=== PATIENT | male | born 1990 | race Caucasian/White ===

== ENCOUNTER 2018-01-06 19:24 | Inpatient (IN) | payer MEDICAID, OTHER ==
--- NOTE | 2018-01-06 19:35 | C.PDOC ---
History Of Present Illness 27 year old male is sent to the ED from [facility] where he was hospitalized for severe episodes of psychotic episodes s/p smoking marijuana with/without extra chemicals in it. Patient states his symptoms have been going on for a week. Patient reports being paranoid, anxious and being unable to sleep. Patient denies other physical complaints, SI/HI, hallucinations, fever, CP, SOB. Time Seen by Provider: 01/06/18 19:31 Chief Complaint (Nursing): Psychiatric Evaluation History Per: Patient, Other History/Exam Limitations: no limitations Onset/Duration Of Symptoms: Days Current Symptoms Are (Timing): Still Present Suicide/Self Injury Attempted (Context): None Modifying Factor(s): Marijuana Associated Symptoms: Anxiety, Paranoia. denies: Depression, Suicidal Thoughts, Suicidal Plan Recent travel outside of the [place]: No Additional History Per: Patient Past Medical History Reviewed: Historical Data, Nursing Documentation, Vital Signs Vital Signs: Last Vital Signs Temp 98 F 01/06/18 19:31 Pulse 68 01/06/18 19:31 Resp 20 01/06/18 19:31 BP 135/68 01/06/18 19:31 Pulse Ox 98 01/06/18 19:31 - Medical History PMH: No Chronic Diseases Surgical History: No Surg Hx Family History: States: Unknown Family Hx - Social History Hx Tobacco Use: No Hx Alcohol Use: No Hx Substance Use: Yes Review Of Systems Constitutional: Negative for: Fever, Chills Cardiovascular: Negative for: Chest Pain Respiratory: Negative for: Cough, Shortness of Breath Gastrointestinal: Negative for: Nausea, Vomiting, Abdominal Pain Skin: Negative for: Rash Neurological: Negative for: Weakness, Numbness Psych: Positive for: Anxiety, Psychosis. Negative for: Depression, Suicidal ideation Physical Exam - Physical Exam Appears: Non-toxic, No Acute Distress Skin: Normal Color, Warm, Dry Head: Atraumatic, Normacephalic Eye(s): bilateral: Normal Inspection Nose: No Discharge Oral Mucosa: Moist Neck: Normal ROM, Supple Chest: Symmetrical Cardiovascular: Rhythm Regular, No Murmur Respiratory: Normal Breath Sounds, No Rales, No Rhonchi, No Wheezing Gastrointestinal/Abdominal: Soft, No Tenderness, No Guarding, No Rebound Extremity: Normal ROM, No Tenderness, No Swelling Neurological/Psych: Oriented x3 ED Course And Treatment O2 Sat by Pulse Oximetry: 98 (On RA) Pulse Ox Interpretation: Normal Medical Decision Making Medical Decision Making: Patient will be admitted to the Hospital. Disposition Counseled Patient/Family Regarding: Diagnosis, Need For Followup - Disposition Disposition: HOME/ ROUTINE Disposition Time: 19:34 Condition: SERIOUS Forms: [facility] ([place]) - Clinical Impression Clinical Impression: Acute hyperactive cannabis intoxication delirium - Scribe Statement The provider has reviewed the documentation as recorded by the Scribe Dl Freeman All medical record entries made by the Scribe were at my direction and personally dictated by me. I have reviewed the chart and agree that the record accurately reflects my personal performance of the history, physical exam, medical decision making, and the department course for this patient. I have also personally directed, reviewed, and agree with the discharge instructions and disposition. Decision To Admit - Pt Status Changed To: Hospital Disposition Of: Inpatient - Admit Certification Admit to Inpatient:: After my assessment, the patient will require hospitalization for at least two midnights. This is because of the severity of symptoms shown, intensity of services needed, and/or the medical risk in this patient being treated as an outpatient. - InPatient: Physician Admission Certification: I certify that this patient requires 2 or more midnights of care for the following reason:: psycosis - . Bed Request Type: Psychiatry Patient Diagnosis: Acute hyperactive cannabis intoxication delirium
[2018-01-06] MEDS ORDERED: Sodium Chloride 0.9% 1,000 ML IV ONE (20:07)
--- NOTE | 2018-01-06 23:57 | PCM.BM ---
<MateusFany - Last Filed: 01/06/18 23:55> Treatment Plan Problems - Problems identified on initial assessmt Depression Date Initiated: 01/06/18 Time Initiated: 19:45 Assessment reference: NA Status: Active Auditory Hallucinations Date Initiated: 01/06/18 Time Initiated: 19:45 Assessment reference: NA Status: Active Treatment assets and liabiliti Patient Assests: self-reliant, ADL independent, physically healthy, good support system, negotiates basic needs Patient Liabilities: substance abuse - Milieu Protocol Maintain good personal hygiene: daily Encourage regular showers, daily Remind patient to perform daily oral care Conduct patient checks and document Observation sheet: Q15 minutes Maintain personal safety: every shift Educate patient to report safety concerns to staff, every shift Monitor environment for contraband/sharps Medication safety: Monitor for expected outcome, potential side effects: every shift, Assess barriers to learning: every shift, Assess readiness for medication education: every shift <Sasha Zarco - Last Filed: 01/11/18 11:32> Family Contact Family involvement: Family/SO is involved Family contact: Patient declines to allow family contact at present - Goals for Treatment Patient goals for treatment: "I want to attend outpatient treatment." Discharge/Continuing Care - Education Needs Education Needs: Patient Medication, Patient Coping Skills - Discharge Discharge Criteria: Tolerates medication w/o severe side effects, Reduction of target symptoms Discharge to:: Home, With Family - Treatment Team Participation Discussed with Family/SO: No Was Patient/Family/SO present at Treatment Team Meeting: Yes <Corey Plummer - Last Filed: 01/11/18 11:35> - Diagnosis (1) Bipolar disorder, curr episode mixed, severe, with psychotic features Status: Acute Interventions: 01/11/18 11:35 * Assess/adjust medications daily and /or as needed * See patient on an individual basis 7x/week to assess level of manic behaviors and stability * Discuss risks, benefits, side effects and alternatives of medications *
[2018-01-07 08:40] VITALS: O2SAT 99
--- NOTE | 2018-01-07 10:32 | PCM.PSYCH ---
Initial Psychiatric Evaluation - Initial Psychiatric Evaluation Type of Admission: Voluntary Legal Status: Capacity Chief Complaint (in patient's own words): "I've been really paranoid" History of Present Illness and Precipitating Events: 27 yo M, with no significant PMHx who presents here as a transfer from [facility], for "psychosis" x 1.5 weeks. As per patient, he has been feeling quite sad and depressed over the last month. He attributes these feelings of sadness to his own perceived self worth and the number of accomplishments in his life up to this point. Because of this, he began using marijuana in excess to his typical use, to "numb the feelings". Patient reports that 10 days ago, he smoked a joint that his friend made with a mixture of marijuana and "tobacco". Shortly after, patient states that he felt different that he has before on marijuana. Over the next several days, he had intense feelings of paranoia, described as if people were around him trying to jump him , as well as racing thoughts, and disturbed sleeping pattern (only received a few hours each night since last week). Patient also admits to non-specific delusions, such as the feeling that the radio/TV were putting songs or channels on "just for me" and that reading text messages on his phone made him quite paranoid and confused. Patient further explains that all of last week when he was at home with is family, his parents and brothers noticed his abnormal behavior and became concerned. He states that he felt quite distrustful of his family members and was reported by them that he was saying "I wanted to jump out the window" but he does not recall saying this himself. These symptoms continued to persist until patient decided to go to the hospital for further evaluation. He reports going to [facility] 2 days ago, was discharged after a few hours, then went to [facility], who told him "the marijuana may have been laced and you are having acute psychosis". Now, patient states that he feels much better then before. Denies any current delusions, hallucinations or paranoia. Admits to some feelings of depression but less then before. Denies any SI/HI as well. Patient is otherwise in NAD. Denies any other complaints at this time. PMHx: HLD, "high blood sugar" PSHx: denies Medications: denies Allergies: NKDA Psych Hx: Denies ever being diagnosed with any psych condition or ever receiving therapy in the past. No prior psych hospitalizations. Patient does however, report that he may "have ADHD since I was a teenager". When asked about this, patient explains that all throughout high school he had difficulty concentrating, and was very distractable. He completed one semester of college, before dropping out. He states that "I just couldn't handle it" and out of boredom. Patient also reports that he constantly needs to find tasks to complete , and that he can only concentrate on projects that interest him, but frequently jumps from task to task without completing them. Additionally, patient has reported that on a few occasions during [age]yo he would stay up late at night working on projects, get only a few hours sleep, and then wake up early feeling unrested. These episodes did not last many days. Education: Completed HS Home Situation: Currently lives at home with his parents and 2x brother. He has a long-term girlfriend that he lived with for a few months, but because "she cheated". They have a 3 yo child together that he remains close with. FHx: Half-brother on maternal side has a h/o of depression Substance use: Patient reports using marijuana regularly. He began using around 20 yo with joints, and has recently switched to THC oil and vaporizer. He admits to EtoH only on social occasion (4-5x drinks in one sitting, <2x/month), and has used cocaine a few times in the past. Denies use of heroin, opioids, benzos, PCP, LSD or other substances. Current Medications: Active Medications Generic Name Dose Route Start Last Admin Trade Name Freq PRN Reason Stop Dose Admin Hydroxyzine HCl 25 mg 01/06/18 22:01 Atarax PO Q4H PRN Anxiety Ibuprofen 400 mg 01/06/18 22:01 Motrin Tab PO Q6H PRN Pain, moderate (4-7) Pneumococcal Polyvalent Vaccine 0.5 ml 01/08/18 10:00 Pneumovax 23 Vaccine IM 01/08/18 10:01 .ONCE ONE Trazodone HCl 50 mg 01/06/18 22:01 Desyrel PO HS PRN Insomnia Past Psychiatric History - Past Psychiatric History Previous Treatment History: None Pertinent Medical Hx (Current Medical&Sleep Prob, Allergies): Allergies Allergy/AdvReac Type Severity Reaction Status Date / Time No Known Allergies Allergy Verified 01/06/18 19:37 No Known Home Med 01/06/18 Review of Systems - Review of Systems All systems: reviewed and no additional remarkable complaints except - Psychiatric Psychiatric: Abnormal Sleep Pattern, Anxiety, Behavioral Changes, Confusion, Depression, Difficulty Concentrating, Irritability, Paranoia, Visual Hallucinations. absent: Homicidal Ideation, Suicidal Ideation, Tactile Hallucinations Mental Status Examination - Personal Presentation Personal Presentation: Looks stated age - Affect Affect: Constricted, Depressed - Motor Activity Motor Activity: Calm - Reliability in Providing Information Reliability in Providing Information: Poor, due to alteration in thoughts, Poor , due to altered mood - Speech Speech: Disorganized - Mood Mood: Depressed, Anxious - Formal Thought Process Formal Thought Process: Hallucinations, Delusions, Paranoia, Loosening of associations - Hallucinations/Delusions Hallucinations: Visual Delusions: Persecution - Obsessions/Compulsions Obsessions: No Compulsions: No - Cognitive Functions Orientation: Person, Place, Situation, Time Sensorium: Alert Attention/Concentration: Attentive Abstract Thinking: [place] Estimate of Intelligence: Below average Judgement: Imparied, as evidence by: Poor judgement, Imparied, as evidence by: Lack of insight into illness - Risk Risk: Diminished functioning - Strength & Assets Inventory Strength & Assets Inventory: Family support DSM 5 DX - DSM 5 DSM 5 Diagnosis: Bipolar mixed severe with psychotic features Cannabis use disorder severe - Recommended/Plan of Treatment Treatment Recommendations and Plan of Treatment: Bipolar mixed severe with psychotic features CBT Psychoeducation Supportive therapy, group therapy, individual therapy Depakote 250 mg by mouth twice a day Seroquel 100 mg by mouth daily at bedtime Gabapentin 100 mg by mouth 3 times a day Cannabis use disorder severe CBT Psychoeducation Supportive therapy, individual therapy Use [place] for abstinence - Smoking Cessation Smoking Cessation Initiated: No
[2018-01-07] MEDS: Divalproex 250 mg DR Tab PO SCH ×2 (13:26→17:44)
[2018-01-08 06:25] VITALS: RESP 18
[2018-01-08] MEDS: Divalproex 250 mg DR Tab PO SCH ×2 (09:42→17:40)
[2018-01-08] MEDS ORDERED: Influenza Vaccine 60 mcg/0.5 mL SYR (4YR UP) IM ONE (10:00)
[2018-01-08] MEDS ORDERED: Pneumococcal 23-Valent Vaccine IM ONE (10:00)
--- NOTE | 2018-01-08 11:20 | PCM.PYCHPN ---
Psychiatric Progress Note - Psychiatric Progress Note Patient seen today, length of contact: 15 min Patient Chief Complaint: "I've been really paranoid" Problems Identified/Issues Discussed: Patient seen and evaluated, chart reviewed and discussed with the nurse. He reports depressed mood and racing of thoughts. He still reports of AVH and paranoia. Patient remained isolated, confined and withdrawn. Patient is compliant with medications and denies any side effects. Symptoms are improving but need more time to stabilize. Support and psychoeducation given. Medication Change: Yes (increase seroquel, increase depakote) Medical Record Reviewed: Yes Mental Status Examination - Cognitive Function Orientation: Person, Place, Situation, Time Memory: Intact Attention: WNL Concentration: Poor Association: Loose Fund of Knowledge: WNL - Mood Mood: Depressed, Anxious - Affect Affect: Constricted, Depressed - Formal Thought Process Formal Thought Process: Hallucinations, Delusions, Paranoia, Loosening of associations - Suicidal Ideation Suicidal Ideation: No - Homicidal Ideation Homicidal Ideation: No Goal/Treatment Plan - Goal/Treatment Plan Need for Continued Stay: Severe depression anxiety, Severe functional impairment Progress Toward Problem(s) and Goals/Treatment Plan: Bipolar mixed severe with psychotic features CBT Psychoeducation Supportive therapy, group therapy, individual therapy Depakote 250 mg by mouth daily Depakote 500 mg by mouth HS Seroquel 200 mg by mouth daily at bedtime Gabapentin 100 mg by mouth 3 times a day Cannabis use disorder severe CBT Psychoeducation Supportive therapy, individual therapy Use [place] for abstinence - Smoking Cessation Smoking Cessation Initiated: No
[2018-01-09] MEDS: Divalproex 250 mg DR Tab PO SCH (09:14)
--- NOTE | 2018-01-09 14:44 | PCM.PYCHPN ---
Psychiatric Progress Note - Psychiatric Progress Note Patient seen today, length of contact: 15 min Patient Chief Complaint: I'm feeling much better Problems Identified/Issues Discussed: Patient seen, chart reviewed, case discussed with the staff. Issues related to illness and treatment were discussed with the patient. Reported compliant with treatment with no adverse affects except more sedation. Requesting to reduce the dose of Seroquel. Reported feeling little better. Mood reported as okay. Affect appropriate. Patient is becoming better, needs more time. Stabilization. Awake alert oriented 3, no delusions, no auditory or visual hallucinations, no suicidal ideations or homicidal ideations at the time of evaluation. Medical Problems: History of diabetes mellitus and HDL Diagnostic Results: Reviewed DSM 5 Symptoms Update: Improving with treatment Medication Change: Yes (Dose of Seroquel decreased to 100 mg) Medical Record Reviewed: Yes Mental Status Examination - Cognitive Function Orientation: Person, Place, Situation, Time Memory: Intact Attention: WNL Concentration: WNL Association: WNL Fund of Knowledge: WN Decription of patient's judgement and insights: Fair - Mood Mood: Neutral - Affect Affect: Other (Appropriate) - Speech Speech: Appropriate - Formal Thought Process Psychotic Thoughts and Behaviors: None - Suicidal Ideation Suicidal Ideation: No - Homicidal Ideation Homicidal Ideation: No Goal/Treatment Plan - Goal/Treatment Plan Need for Continued Stay: Remain at risks for inpatient hospitalization, Discharge may exacerbated symptoms, Severe functional impairment Progress Toward Problem(s) and Goals/Treatment Plan: Patient education Supportive therapy Continue treatment as before Patient will get help of the medical social worker to find a place for follow-up care after discharge from the hospital. Estimated Date of D/C: 01/13/18 - Smoking Cessation Smoking Cessation Initiated: No
[2018-01-09] MEDS: Divalproex 500 mg DR Tab PO SCH (21:05)
[2018-01-10] MEDS: Divalproex 250 mg DR Tab PO SCH (09:22)
--- NOTE | 2018-01-10 13:14 | PCM.PYCHPN ---
Psychiatric Progress Note - Psychiatric Progress Note Patient seen today, length of contact: 15 min Patient Chief Complaint: I'm feeling much better. I have less sedation. Problems Identified/Issues Discussed: Patient seen, chart reviewed, case discussed with the staff. Issues related to illness and treatment were discussed with the patient. Reported compliant with treatment with no adverse affects. His sedation is also less after reducing the dose of Seroquel. Reported feeling much better. Mood reported as good. Affect appropriate. Patient is becoming better, needs more time for Stabilization. Awake alert oriented 3, no delusions, no auditory or visual hallucinations, no suicidal ideations or homicidal ideations at the time of evaluation. Medical Problems: History of diabetes mellitus and HDL Diagnostic Results: Reviewed DSM 5 Symptoms Update: Improving with treatment Medication Change: No Medical Record Reviewed: Yes Mental Status Examination - Cognitive Function Orientation: Person, Place, Situation, Time Memory: Intact Attention: WNL Concentration: WNL Association: [facility] Fund of Knowledge: [facility] Decription of patient's judgement and insights: Fair - Mood Mood: Neutral - Affect Affect: Other (Appropriate) - Speech Speech: Appropriate - Formal Thought Process Formal Thought Process: No Impairment Psychotic Thoughts and Behaviors: None - Suicidal Ideation Suicidal Ideation: No - Homicidal Ideation Homicidal Ideation: No Goal/Treatment Plan - Goal/Treatment Plan Need for Continued Stay: Remain at risks for inpatient hospitalization, Discharge may exacerbated symptoms, Severe functional impairment Progress Toward Problem(s) and Goals/Treatment Plan: Patient education Supportive therapy Continue treatment as before Patient will get help of the social staff worker to find a place for follow-up care after discharge from the hospital. Estimated Date of D/C: 01/13/18 - Smoking Cessation Smoking Cessation Initiated: No
[2018-01-10] MEDS: Divalproex 500 mg DR Tab PO SCH (21:13)
[2018-01-11] MEDS: Divalproex 250 mg DR Tab PO SCH (09:58)
[2018-01-11] MEDS: Divalproex 500 mg DR Tab PO SCH (21:20)
--- NOTE | 2018-01-11 23:15 | PCM.PYCHPN ---
Psychiatric Progress Note - Psychiatric Progress Note Patient seen today, length of contact: 15 min Patient Chief Complaint: "I've been really paranoid" Problems Identified/Issues Discussed: Patient seen and evaluated, chart reviewed and discussed with the nurse. He reports depressed mood and racing of thoughts. He still reports of AVH and paranoia. Patient remained isolated, confined and withdrawn. Patient is compliant with medications and denies any side effects. Symptoms are improving but need more time to stabilize. Support and psychoeducation given. Medication Change: No Medical Record Reviewed: Yes Mental Status Examination - Cognitive Function Orientation: Person, Place, Situation, Time Memory: Intact Attention: WNL Concentration: WNL Association: WNL Fund of Knowledge: WNL - Mood Mood: Neutral - Affect Affect: Other (Appropriate) - Speech Speech: Appropriate - Formal Thought Process Formal Thought Process: No Impairment - Suicidal Ideation Suicidal Ideation: No - Homicidal Ideation Homicidal Ideation: No Goal/Treatment Plan - Goal/Treatment Plan Need for Continued Stay: Remain at risks for inpatient hospitalization, Discharge may exacerbated symptoms, Severe functional impairment Progress Toward Problem(s) and Goals/Treatment Plan: Bipolar mixed severe with psychotic features CBT Psychoeducation Supportive therapy, group therapy, individual therapy Depakote 250 mg by mouth daily Depakote 500 mg by mouth HS Seroquel 200 mg by mouth daily at bedtime Gabapentin 100 mg by mouth 3 times a day Cannabis use disorder severe CBT Psychoeducation Supportive therapy, individual therapy Use [place] for abstinence Estimated Date of D/C: 01/13/18
[2018-01-12 08:54] VITALS: BP 123/76; PULSE 60; TEMP 96.7
--- NOTE | 2018-01-12 09:08 | PCM.PYCHDC ---
Mental Status Examination - Mental Status Examination Orientation: Person, Place, Situation, Time Memory: Intact Mood: Neutral Affect: Constricted Speech: Soft Attention: WNL Concentration: WNL Association: WNL Fund of Knowledge: WNL Formal Thought Process: No Impairment Description of patient's judgement and insight: good, fair Psychotic Thoughts and Behaviors: denies any AVH Suicidal Ideation: No Current Homicidal Ideation?: No Discharge Summary - Discharge Note Reason for Hospitalization: 27 yo M, with no significant PMHx who presents here as a transfer from [facility], [place], for "psychosis" x 1.5 weeks. As per patient, he has been feeling quite sad and depressed over the last month. He attributes these feelings of sadness to his own perceived self worth and the number of accomplishments in his life up to this point. Because of this, he began using marijuana in excess to his typical use, to "numb the feelings". Patient reports that 10 days ago, he smoked a joint that his friend made with a mixture of marijuana and "tobacco". Shortly after, patient states that he felt different that he has before on marijuana. Over the next several days, he had intense feelings of paranoia, described as if people were around him trying to jump him , as well as racing thoughts, and disturbed sleeping pattern (only received a few hours each night since last week). Patient also admits to non-specific delusions, such as the feeling that the radio/TV were putting songs or channels on "just for me" and that reading text messages on his phone made him quite paranoid and confused. Patient further explains that all of last week when he was at home with is family, his parents and brothers noticed his abnormal behavior and became concerned. He states that he felt quite distrustful of his family members and was reported by them that he was saying "I wanted to jump out the window" but he does not recall saying this himself. These symptoms continued to persist until patient decided to go to the hospital for further evaluation. He reports going to [facility] 2 days ago, was discharged after a few hours, then went to [facility], who told him "the marijuana may have been laced and you are having acute psychosis". Now, patient states that he feels much better then before. Denies any current delusions, hallucinations or paranoia. Admits to some feelings of depression but less then before. Denies any SI/HI as well. Patient is otherwise in NAD. Denies any other complaints at this time. PMHx: HLD, "high blood sugar" PSHx: denies Medications: denies Allergies: NKDA Psych Hx: Denies ever being diagnosed with any psych condition or ever receiving therapy in the past. No prior psych hospitalizations. Patient does however, report that he may "have ADHD since I was a teenager". When asked about this, patient explains that all throughout high school he had difficulty concentrating, and was very distractable. He completed one semester of college, before dropping out. He states that "I just couldn't handle it" and out of boredom. Patient also reports that he constantly needs to find tasks to complete , and that he can only concentrate on projects that interest him, but frequently jumps from task to task without completing them. Additionally, patient has reported that on a few occasions during [age]yo he would stay up late at night working on projects, get only a few hours sleep, and then wake up early feeling unrested. These episodes did not last many days. Education: Completed HS Home Situation: Currently lives at home with his parents and 2x brother. He has a long-term girlfriend that he lived with for a few months, but because "she cheated". They have a 3 yo child together that he remains close with. FHx: Half-brother on maternal side has a h/o of depression Substance use: Patient reports using marijuana regularly. He began using around 20 yo with joints, and has recently switched to THC oil and vaporizer. He admits to EtoH only on social occasion (4-5x drinks in one sitting, <2x/month), and has used cocaine a few times in the past. Denies use of heroin, opioids, benzos, PCP, LSD or other substances. Consultations:: List each consultation separately and include: 1. Reason for request. 2. Findings. 3. Follow-up Summary of Hospital Course include:: 1. Description of specific treatment plan utilized for patients during their course of treatmen. 2. Summarize the time- course for resolution of acute symptoms and/or regressed behaviors. 3. Describe issues identified and worked on during hospitalization. 4. Describe medication utilized. 5. Describe medical problems identified and treated. 6. Reassessment of suicide risk Summary of Hospital Course: 27 yo M, with no significant PMHx who presents here as a transfer from [facility], [place], for "psychosis" x 1.5 weeks. As per patient, he has been feeling quite sad and depressed over the last month. He attributes these feelings of sadness to his own perceived self worth and the number of accomplishments in his life up to this point. Because of this, he began using marijuana in excess to his typical use, to "numb the feelings". Patient reports that 10 days ago, he smoked a joint that his friend made with a mixture of marijuana and "tobacco". Shortly after, patient states that he felt different that he has before on marijuana. Over the next several days, he had intense feelings of paranoia, described as if people were around him trying to jump him , as well as racing thoughts, and disturbed sleeping pattern (only received a few hours each night since last week). Patient also admits to non-specific delusions, such as the feeling that the radio/TV were putting songs or channels on "just for me" and that reading text messages on his phone made him quite paranoid and confused. Patient further explains that all of last week when he was at home with is family, his parents and brothers noticed his abnormal behavior and became concerned. He states that he felt quite distrustful of his family members and was reported by them that he was saying "I wanted to jump out the window" but he does not recall saying this himself. These symptoms continued to persist until patient decided to go to the hospital for further evaluation. He reports going to [facility] 2 days ago, was discharged after a few hours, then went to [facility], who told him "the marijuana may have been laced and you are having acute psychosis". Now, patient states that he feels much better then before. Denies any current delusions, hallucinations or paranoia. Admits to some feelings of depression but less then before. Denies any SI/HI as well. Patient is otherwise in NAD. Denies any other complaints at this time. PMHx: HLD, "high blood sugar" PSHx: denies Medications: denies Allergies: NKDA Psych Hx: Denies ever being diagnosed with any psych condition or ever receiving therapy in the past. No prior psych hospitalizations. Patient does however, report that he may "have ADHD since I was a teenager". When asked about this, patient explains that all throughout high school he had difficulty concentrating, and was very distractable. He completed one semester of college, before dropping out. He states that "I just couldn't handle it" and out of boredom. Patient also reports that he constantly needs to find tasks to complete , and that he can only concentrate on projects that interest him, but frequently jumps from task to task without completing them. Additionally, patient has reported that on a few occasions during [age]yo he would stay up late at night working on projects, get only a few hours sleep, and then wake up early feeling unrested. These episodes did not last many days. Education: Completed HS Home Situation: Currently lives at home with his parents and 2x brother. He has a long-term girlfriend that he lived with for a few months, but because "she cheated". They have a 3 yo child together that he remains close with. FHx: Half-brother on maternal side has a h/o of depression Substance use: Patient reports using marijuana regularly. He began using around 20 yo with joints, and has recently switched to THC oil and vaporizer. He admits to EtoH only on social occasion (4-5x drinks in one sitting, <2x/month), and has used cocaine a few times in the past. Denies use of heroin, opioids, benzos, PCP, LSD or other substances. - Diagnosis (1) Bipolar disorder, curr episode mixed, severe, with psychotic features Current Visit: Yes Status: Acute - Final Diagnosis (DSM 5) Condition upon Discharge: SERIOUS DSM 5: Bipolar mixed severe with psychotic features Cannabis use disorder severe Disposition: HOME/ ROUTINE Follow-up Treatment Plan: Bipolar mixed severe with psychotic features CBT Psychoeducation Supportive therapy, group therapy, individual therapy Depakote 250 mg by mouth daily Depakote 500 mg by mouth HS Seroquel 200 mg by mouth daily at bedtime Gabapentin 100 mg by mouth 3 times a day Cannabis use disorder severe CBT Psychoeducation Supportive therapy, individual therapy Use FL for abstinence Prescriptions/Medication Reconciliation: Divalproex [Depakote DR] 250 mg PO DAILY #30 tcp Divalproex [Depakote DR] 500 mg PO HS #30 tcp QUEtiapine [Seroquel] 200 mg PO HS #30 tab - Smoking Cessation Smoking Cessation Medication prescribed: No - Antipsychotic Medications Pt discharged on 2 or more routine antipsychotic medications: No
[2018-01-12] MEDS: Divalproex 250 mg DR Tab PO SCH (09:49)
== END 2018-01-12 11:37 | disposition home or self-care (01) | DRG 430 ==
LOC: C.ER 19:24 → C.5E 19:39
PROVIDERS: ADMIT Psychiatry & Neurology Psychiatry; ATTEND Psychiatry & Neurology Psychiatry
PROC: GZ3ZZZZ Medication Management (ICD-10-PCS; principal; 2018-01-06)
PROC: HZ36ZZZ Individual Counseling for Substance Abuse Treatment, Psychoeducation (ICD-10-PCS; 2018-01-06)
PROC: HZ89ZZZ Medication Management for Substance Abuse Treatment, Other Replacement Medication (ICD-10-PCS; 2018-01-06)
PROC: GZHZZZZ Group Psychotherapy (ICD-10-PCS; 2018-01-06)
PROC: GZ56ZZZ Individual Psychotherapy, Supportive (ICD-10-PCS; 2018-01-06)
PROC: HZ59ZZZ Individual Psychotherapy for Substance Abuse Treatment, Supportive (ICD-10-PCS; 2018-01-06)
DX: F31.64 Bipolar disorder, current episode mixed, severe, with psychotic features (principal); F12.221 Cannabis dependence with intoxication delirium; E11.9 Type 2 diabetes mellitus without complications; E78.5 Hyperlipidemia, unspecified; F22 Delusional disorders